=== PATIENT | female | born 1990 | race Caucasian/White ===

== ENCOUNTER → 2020-09-24 | Outpatient (CLI) | payer MEDICARE, SELFPAY, OTHER ==
[~2020-09-24] MED LIST: IBUPROFEN600 MG PO; ZOFRAN ODT 4 MG4 MG GT
== END ==
LOC: US 09:27
DX: R10.9 Unspecified abdominal pain (principal); K80.20 Calculus of gallbladder without cholecystitis without obstruction
CPT/HCPCS: 76700

== ENCOUNTER 2020-10-28 11:41 | Emergency (ER) | payer MEDICARE, SELFPAY ==
[2020-10-28] MEDS ORDERED: IBUPROFEN600 MG PO (13:49)
== END 2020-10-28 14:22 | disposition home or self-care (01) ==
LOC: ER1 11:41
DX: M65.4 Radial styloid tenosynovitis [de Quervain] (principal); F32.9 Major depressive disorder, single episode, unspecified; F17.200 Nicotine dependence, unspecified, uncomplicated
CPT/HCPCS: 73110; 73140; 99283

== ENCOUNTER 2020-12-12 18:39 | Emergency (ER) | payer MEDICARE ==
[~2020-12-12 18:39] MED LIST changes: -ZOFRAN ODT 4 MG4 MG GT
[2020-12-12 21:57] LABS: HEMOGLOBIN 13.6 gm/dl (12.3-15.3); RED BLOOD COUNT 4.65 M/UL (4.00-5.10); WHITE BLOOD COUNT 9.1 K/UL (4.5-11.0)
[2020-12-12 22:08] LABS: BUN/CREATININE RATIO 10 (0-10)
[2020-12-12] MEDS ORDERED: ZOFRAN ODT 4 MG4 MG GT (23:41)
== END 2020-12-12 23:52 | disposition home or self-care (01) ==
LOC: ER1 18:39
PROVIDERS: Family Medicine; Physician Assistant
DX: R10.9 Unspecified abdominal pain (principal); R19.7 Diarrhea, unspecified; R11.2 Nausea with vomiting, unspecified
CPT/HCPCS: 80053; 81001; 82150; 83690; 84703; 85025; 96374; 96375; 99284; J1885; J2405; Q9967